=== PATIENT | female | born 1990 | race Caucasian/White ===

== ENCOUNTER 2019-02-08 17:23 | Emergency (ER) | payer OTHER ==
[~2019-02-08] VITALS: Ht 157.5 cm; Wt 50.8 kg
[2019-02-08] MEDS ORDERED: KETO10TA2 PO (22:48)
[2019-02-08] MEDS ORDERED: AIRBORNE EFFER1 EACH PO (22:48)
== END 2019-02-08 22:53 | disposition home or self-care (01) ==
LOC: ER 17:23
DX: B34.9 Viral infection, unspecified (principal); R53.1 Weakness